=== PATIENT | female | born 1935 | race Caucasian/White ===

== ENCOUNTER → 2016-06-12 | Outpatient (CLI) | payer BC ==
[~2016-06-12] MED LIST: EZET10TA63 PO; OMEP10CA2 PO
[2016-06-12 09:45] LABS: BLOOD UREA NITROGEN 28 mg/dl (7-18); BUN/CREATININE RATIO 23.2 (10-20); CALCIUM 9.3 mg/dl (8.5-10.1); CARBON DIOXIDE 26 mmol/L (21-32); CHLORIDE 102 mmol/L (98-107); CHOLESTEROL 203 mg/dl (0-200); GLUCOSE 100 mg/dl (70-99); POTASSIUM 4.6 mmol/L (3.5-5.1); SODIUM 137 mmol/L (136-145)
[2016-06-12 09:48] LABS: CHOLESTEROL/HDL RATIO 2.8; HDL CHOLESTEROL 73 mg/dl; LDL CHOLESTEROL CALCULATED 109 mg/dl; TRIGLYCERIDES 105 mg/dl (0-150); VERY LOW DENSITY LIPOPROT CALC 21 mg/dl
== END | disposition home or self-care (01) ==
LOC: C.LAB1850 07:51
PROVIDERS: ATTEND Family Medicine
DX: I10 Essential (primary) hypertension (principal); E78.2 Mixed hyperlipidemia

== ENCOUNTER → 2016-09-13 | Outpatient (CLI) | payer BC ==
--- NOTE | 2016-09-13 15:08 | MAMMOGRAPHY REPORT ---
BILATERAL DIGITAL SCREENING MAMMOGRAM WITH CAD: 09/13/2016 CLINICAL HISTORY: Routine screening. Patient has no complaints. TECHNIQUE: Current study was also evaluated with a Computer Aided Detection (CAD) system. Bilatera l CC and MLO views were obtained. COMPARISON: Comparison is made to exams dated: 09/11/2015 mammogram, 09/07/2014 mammogram, 09/06/2013 sylvain mogram, 09/03/2012 mammogram, 09/03/2011 mammogram, and 03/18/2011 mammogram - [facility]. BREAST COMPOSITION: There are scattered areas of fibroglandular density in both breasts. FINDINGS: No suspicious masses, calcifications, or areas of architectural distortion are noted in e ither breast. There has been no significant interval change compared to prior exams. IMPRESSION: ACR BI-RADS CATEGORY 1: NEGATIVE There is no mammographic evidence of malignancy. A 1 year screening mammogram is recommended. The p atient will receive written notification of the results. Approximately 10% of breast cancers are not detected with mammography. A negative mammographic repor t should not delay biopsy if a clinically suggestive mass is present. Viviana Melchor M.D. /:09/13/2016 08:53:08 Creative Services Director: Shirley WILLIAMSON)(Abby), [facility] letter sent: Normal 1/2 BI-RADS Code: ACR BI-RADS Category 1: Negative
== END | disposition home or self-care (01) ==
LOC: C.MAMM 07:36
PROVIDERS: ATTEND Family Medicine
DX: Z12.31 Encounter for screening mammogram for malignant neoplasm of breast (principal)

== ENCOUNTER → 2017-03-14 | Outpatient (CLI) | payer BC ==
--- NOTE | 2017-03-14 08:11 | DIAGNOSTIC IMAGING REPORT ---
RIGHT KNEE 4 VIEWS; LEFT KNEE 4 VIEWS CLINICAL HISTORY: Chronic bilateral knee pain. COMPARISON STUDY: Radiographs of the knees dated 11/20/2015. FINDINGS: An AP standing view of both knees, a sunrise view of both knees, a tunnel view both knees, and crosstable lateral views of the right and left knee are obtained. The skeletal structures are osteopenic. No fracture is seen in either knee. Right knee: There is moderate to advanced tricompartmental degenerative joint space narrowing, greatest in the medial and patellofemoral compartments. There is near complete loss of the joint space in the medial compartment. Large marginal osteophytes are identified, as well as patellar enthesophytes. No osteochondral defect is identified on the tunnel image. There is no joint effusion. The overlying soft tissues are within normal limits. Left knee: There is moderate to advanced tricompartmental degenerative joint space narrowing in the left knee, greatest in the medial and patellofemoral compartments. There is near complete loss of the joint space in the medial compartment with bony sclerosis and irregularity. Large marginal osteophytes are identified and there are patellar enthesophytes. No osteochondral defect is identified on the tunnel image. No joint effusion is identified. The overlying soft tissues are within normal limits. IMPRESSION: 1. No acute bony abnormality is identified in either knee. 2. Osteopenia and arthritic change as above, overall similar to the 11/20/2015 examination. Electronically signed by: Willie Genao M.D. 03/14/2017 8:10 AM Dictated Date/Time: 03/14/2017 8:07 AM
== END | disposition home or self-care (01) ==
LOC: C.RDSM 12:23
PROVIDERS: ATTEND Physician Assistant
DX: M25.561 Pain in right knee (principal); M25.562 Pain in left knee; M85.861 Other specified disorders of bone density and structure, right lower leg; M85.862 Other specified disorders of bone density and structure, left lower leg

== ENCOUNTER → 2017-03-20 | Outpatient (CLI) | payer BC ==
[2017-03-20 13:08] LABS: BLOOD UREA NITROGEN 20 mg/dl (7-18); BUN/CREATININE RATIO 20.2 (10-20); CALCIUM 9.4 mg/dl (8.5-10.1); CARBON DIOXIDE 26 mmol/L (21-32); CHLORIDE 101 mmol/L (98-107); CHOLESTEROL 202 mg/dl (0-200); CHOLESTEROL/HDL RATIO 2.8; CREATININE 1.01 mg/dl (0.60-1.20); GLUCOSE 90 mg/dl (70-99); HDL CHOLESTEROL 71 mg/dl; LDL CHOLESTEROL CALCULATED 109 mg/dl; POTASSIUM 4.6 mmol/L (3.5-5.1); SODIUM 134 mmol/L (136-145); TRIGLYCERIDES 108 mg/dl (0-150); VERY LOW DENSITY LIPOPROT CALC 22 mg/dl
== END | disposition home or self-care (01) ==
LOC: C.LABBFT 07:41
PROVIDERS: ATTEND Family Medicine
DX: E78.2 Mixed hyperlipidemia (principal); I10 Essential (primary) hypertension

== ENCOUNTER → 2017-09-15 | Outpatient (CLI) | payer BC ==
--- NOTE | 2017-09-16 15:04 | MAMMOGRAPHY REPORT ---
BILATERAL DIGITAL SCREENING MAMMOGRAM TOMOSYNTHESIS WITH CAD: 09/15/2017 CLINICAL HISTORY: Routine screening. Patient has no complaints. TECHNIQUE: Breast tomosynthesis in addition to standard 2D mammography was performed. Current study was also evaluated with a Computer Aided Detection (CAD) system. COMPARISON: Comparison is made to exams dated: 09/13/2016 mammogram, 09/11/2015 mammogram, 09/07/2014 sylvain mogram, 09/06/2013 mammogram, 09/03/2012 mammogram, and 09/03/2011 mammogram - [facility] . BREAST COMPOSITION: There are scattered areas of fibroglandular density in both breasts. FINDINGS: There are scattered and grouped benign coarse calcifications in the breasts. No suspicious mass, architectural distortion or cluster of suspicious microcalcifications is seen. IMPRESSION: ACR BI-RADS CATEGORY 1: NEGATIVE There is no mammographic evidence of malignancy. A 1 year screening mammogram is recommended. The pa tient will receive written notification of the results. Approximately 10% of breast cancers are not detected with mammography. A negative mammographic report should not delay biopsy if a clinically suggestive mass is present. Allyson Russ M.D. ay/:09/15/2017 17:13:54 [employer]ing [employer] Operator: Sapna RAYO(Michael)(Abby)([place]), [facility] letter sent: Normal 1/2 BI-RADS Code: ACR BI-RADS Category 1: Negative
== END | disposition home or self-care (01) ==
LOC: C.MAMM 11:13
PROVIDERS: ATTEND Family Medicine
DX: Z12.31 Encounter for screening mammogram for malignant neoplasm of breast (principal)

== ENCOUNTER → 2017-12-05 | Outpatient (CLI) | payer BC ==
[2017-12-05 13:07] LABS: ALBUMIN 3.9 gm/dl (3.4-5.0); ALKALINE PHOSPHATASE 44 U/L (45-117); ALT/SGPT 22 U/L (12-78); AST/SGOT 18 U/L (15-37); BLOOD UREA NITROGEN 22 mg/dl (7-18); CALCIUM 9.5 mg/dl (8.5-10.1); CARBON DIOXIDE 28 mmol/L (21-32); CHOLESTEROL 184 mg/dl (0-200); CREATININE 1.14 mg/dl (0.60-1.20); GLUCOSE 98 mg/dl (70-99); LDL CHOLESTEROL CALCULATED 98 mg/dl; POTASSIUM 4.3 mmol/L (3.5-5.1); SODIUM 134 mmol/L (136-145); TOTAL PROTEIN 7.5 gm/dl (6.4-8.2)
== END | disposition home or self-care (01) ==
LOC: C.LABBFT 07:33
PROVIDERS: ATTEND Family Medicine
DX: I83.90 Asymptomatic varicose veins of unspecified lower extremity (principal)